=== PATIENT | male | born 1945 | race Two or more races ===

== ENCOUNTER 2023-09-04 20:38 | Emergency (ER) | payer OTHER ==
[~2023-09-04] VITALS: Ht 188 cm; Wt 95.3 kg
[2023-09-04] MEDS ORDERED: ELIQUIS5 MG PO (20:46)
[2023-09-04] MEDS ORDERED: SOTALOL80 MG PO (20:46)
[2023-09-04] MEDS ORDERED: NASAL MIST126 ML (20:47)
== END 2023-09-04 22:40 | disposition home or self-care (01) ==
LOC: ER 20:38
DX: S00.93XA Contusion of unspecified part of head, initial encounter (principal); W18.39XA Other fall on same level, initial encounter; Y93.89 Activity, other specified; Y92.59 Other trade areas as the place of occurrence of the external cause; Y99.9 Unspecified external cause status